=== PATIENT | female | born 1970 | race American Indian/Alaskan Native ===

== ENCOUNTER 2017-01-01 19:21 | Emergency (ER) | payer SELFPAY ==
[2017-01-01 20:07] LABS: Basophils % (Auto) 0.2 % (0.0-1.8); Eosinophils % (Auto) 0.4 % (0.0-4.3); Hematocrit 41.8 % (30.3-42.9); Hemoglobin 13.8 gm/dl (10.1-14.3); Mean Corpuscular HGB Conc 33 % (30-34); Mean Corpuscular Hemoglobin 29 pg (28-32); Mean Corpuscular Volume 89 fl (79-97); Platelet Count 412 K/mm3 (140-440); Red Blood Count 4.71 M/mm3 (3.65-5.03); White Blood Count 12.8 K/mm3 (4.5-11.0)
[2017-01-01 20:28] LABS: Alanine Aminotransferase 20 units/L (7-56); Albumin 3.7 g/dL (3.9-5); Albumin/Globulin Ratio 0.9 %; Alkaline Phosphatase 41 units/L (35-129); Anion Gap 21 mmol/L; BUN/Creatinine Ratio 4.28; Blood Urea Nitrogen 3 mg/dL (7-17); Calcium 9.2 mg/dL (8.4-10.2); Carbon Dioxide 20 mmol/L (22-30); Glucose 108 mg/dL (65-100); Sodium 143 mmol/L (137-145); Total Protein 7.9 g/dL (6.3-8.2)
[2017-01-02 00:08] LABS: Bilirubin,Urine NEG (Negative); Blood,Urine NEG (Negative); Ketones,Urine 80 mg/dL (Negative); Leukocyte Esterase,Urine TR (Negative); Mucus,Urine 3+ /HPF; Nitrite,Urine NEG (Negative); Urobilinogen,Urine < 2.0 mg/dL (<2.0)
[2017-01-02] MEDS ORDERED: ZOFRAN IV ONE (01:35)
[2017-01-02] MEDS ORDERED: NACL 0.9% 1000 ML 1,000 ML IV ONE (01:35)
[2017-01-02] MEDS ORDERED: MAG-OX PO ONE (01:36)
[2017-01-02] MEDS ORDERED: K-DUR PO ONE ×2 (01:36→04:01)
[2017-01-02] MEDS ORDERED: CARAFATE PO ONE (01:49)
[2017-01-02] MEDS ORDERED: BENTYL IM ONE (01:49)
--- NOTE | 2017-01-02 01:50 | Emergency Department Report ---
ED General Adult HPI - General Chief complaint: Abdominal Pain Stated complaint: VOMITING Time Seen by Provider: 01/02/17 01:35 Source: patient, RN notes reviewed, old records reviewed Mode of arrival: Ambulatory Limitations: No Limitations, Language Barrier - History of Present Illness Initial comments: This is a 46-year-old female, she is previously known to me. On 12/14/2016, patient had a laparoscopic appendectomy at [facility]; [facility]. Her general surgeon was Dr. Thomas. The patient presents to the ER with complaints of nausea, vomiting, diarrhea. The patient was seen in the emergency room at the aforementioned hospital 2 days ago, and had a CT scan with contrast, which demonstrated nonspecific colitis. Specifically, there are no postsurgical changes or complications from the appendectomy," colitis with diffuse wall thickening of the colon could be infectious or inflammatory." The patient was discharged with ciprofloxacin, Flagyl, and pain medication (Bentyl) . She was not discharged with nausea medication. The patient reports that she was able to tolerate liquid feeds upon discharge, but shortly thereafter, developed profuse nausea, vomiting and diarrhea. The emesis is clear, nonbloody and nonbilious. She reports that her diarrhea is clear, and occasionally dark brown. There is no hematemesis or bright red blood per rectum , and there are no irritative obstructive urinary symptoms. Her symptoms worsen when she attempts to eat. -: Gradual Consistency: intermittent Improves with: medication, rest Worsens with: eating Associated Symptoms: nausea/vomiting, weakness - Related Data Previous Rx's Medication Instructions Recorded Last Taken Type Ondansetron [Zofran Odt] 4 mg PO QID PRN #20 tab.rapdis 01/02/17 Unknown Rx Potassium Chloride [K-Tanesha] 20 meq PO BID #14 liquid 01/02/17 Unknown Rx Promethazine [Phenergan SUPPOS] 50 mg AK Q6H PRN #20 supp.rect 01/02/17 Unknown Rx Allergies Allergy/AdvReac Type Severity Reaction Status Date / Time Penicillins Allergy Unknown Verified 01/01/17 19:38 ED Review of Systems ROS: Stated complaint: VOMITING Other details as noted in HPI Constitutional: denies: fever, malaise Eyes: denies: vision change ENT: denies: epistaxis Respiratory: denies: cough Cardiovascular: denies: chest pain Gastrointestinal: nausea, vomiting, diarrhea. denies: abdominal pain Genitourinary: denies: dysuria Musculoskeletal: denies: back pain Skin: denies: lesions Neurological: weakness ED Past Medical Hx - Past Medical History Previous Medical History?: No - Surgical History Past Surgical History?: Yes Hx Appendectomy: Yes - Social History Smoking Status: Never Smoker Substance Use Type: None - Medications Home Medications: Home Medications Medication Instructions Recorded Confirmed Last Taken Type Ondansetron [Zofran Odt] 4 mg PO QID PRN #20 tab.rapdis 01/02/17 Unknown Rx Potassium Chloride [K-Tanesha] 20 meq PO BID #14 liquid 01/02/17 Unknown Rx Promethazine [Phenergan SUPPOS] 50 mg AK Q6H PRN #20 supp.rect 01/02/17 Unknown Rx ED Physical Exam - General Limitations: No Limitations General appearance: alert, in no apparent distress - Head Head exam: Present: atraumatic, normocephalic - Eye Eye exam: Present: normal appearance, EOMI. Absent: nystagmus - ENT ENT exam: Present: normal exam, normal orophraynx, mucous membranes moist, normal external ear exam - Neck Neck exam: Present: normal inspection, full ROM. Absent: tenderness, meningismus - Respiratory Respiratory exam: Present: normal lung sounds bilaterally. Absent: respiratory distress, wheezes, rales, rhonchi, stridor, chest wall tenderness, accessory muscle use, decreased breath sounds, prolonged expiratory - Cardiovascular Cardiovascular Exam: Present: regular rate, normal rhythm, normal heart sounds. Absent: bradycardia, tachycardia, irregular rhythm, systolic murmur, diastolic murmur, rubs, gallop - GI/Abdominal GI/Abdominal exam: Present: soft, normal bowel sounds, other (no redness, pus or streaking. The surgical site is healing well. There is no tenderness.). Absent: distended, tenderness, guarding, rebound, rigid, pulsatile mass - Rectal Rectal exam: Present: normal inspection, normal rectal tone, heme (-) stool, other (during rectal examination, escorted by nurse Varsha Johns) - Extremities Exam Extremities exam: Present: normal inspection, full ROM, normal capillary refill. Absent: pedal edema, joint swelling, calf tenderness - Back Exam Back exam: Present: normal inspection, full ROM. Absent: tenderness, CVA tenderness (R), CVA tenderness (L), muscle spasm, paraspinal tenderness, vertebral tenderness - Neurological Exam Neurological exam: Present: alert, oriented X3, normal gait, other (Extraocular movements intact. Tongue midline. No facial droop. Facial sensation intact to light touch in the V1, V2, V3 distribution bilaterally. 5 and 5 strength in 4 extremities.. Sensation is intact to light touch in 4 extremities.). Absent : motor sensory deficit - Psychiatric Psychiatric exam: Present: normal affect, normal mood - Skin Skin exam: Present: warm, dry, intact, normal color. Absent: rash ED Course Vital Signs 01/01/17 01/02/17 01/02/17 19:38 00:15 01:00 Temperature 98.8 F Pulse Rate 64 56 L 54 L Respiratory 20 20 20 Rate Blood Pressure 116/85 Blood Pressure 126/79 124/68 [Right] O2 Sat by Pulse 100 100 100 Oximetry 01/02/17 01/02/17 01/02/17 01:01 02:00 03:00 Temperature 99.1 F Pulse Rate 61 57 L Respiratory 18 18 Rate Blood Pressure Blood Pressure 137/77 125/69 [Right] O2 Sat by Pulse 100 100 Oximetry 01/02/17 04:00 Temperature Pulse Rate 66 Respiratory 18 Rate Blood Pressure Blood Pressure 122/78 [Right] O2 Sat by Pulse 100 Oximetry - Reevaluation(s) Reevaluation #1: 01/02/17 02:43 Differential diagnoses: Colitis, diverticulitis, dehydration, nausea, vomiting, diarrhea, electrolyte derangement Assessment and plan: 46-year-old female who has a recent CT scan confirmed colitis, currently on appropriate antibiotic therapy with a complaint of nausea , vomiting and diarrhea. She will be treated symptomatically. Her abdomen is benign. She is clinically well-appearing. if The patient can tolerate oral feeds, the patient will be discharged. Reevaluation #2: 01/02/17 02:53 Patient vomited after Zofran. Reglan has been ordered. Reevaluation #3: 01/02/17 04:21 Patient feels much improved after multiple rounds of IV enzymatic medication. She is now able to tolerate liquid feeds, and her belly remained soft on repeat examination. She will be discharged with Zofran ODT, Phenergan suppository, liquid potassium supplementation. She has not produced a stool sample since I first evaluated her, therefore I think C. difficile is unlikely. She is instructed to follow up with outpatient blade operator within the next month. Return precautions are reviewed. ED Medical Decision Making - Lab Data Result diagrams: 01/01/17 19:56 01/01/17 19:56 Vital Signs 01/01/17 01/02/17 01/02/17 19:38 00:15 01:01 Temperature 98.8 F 99.1 F Pulse Rate 64 56 L Respiratory 20 20 Rate Blood Pressure 116/85 Blood Pressure 126/79 [Right] O2 Sat by Pulse 100 100 Oximetry Lab Results 01/01/17 01/01/17 01/01/17 Range/Units 19:56 19:56 19:56 WBC 12.8 H (4.5-11.0) K/mm3 RBC 4.71 (3.65-5.03) M/mm3 Hgb 13.8 (10.1-14.3) gm/dl Hct 41.8 (30.3-42.9) % MCV 89 (79-97) fl MCH 29 (28-32) pg MCHC 33 (30-34) % RDW 14.0 (13.2-15.2) % Plt Count 412 (140-440) K/mm3 Lymph % (Auto) 24.3 (13.4-35.0) % [place] % (Auto) 10.1 H (0.0-7.3) % Eos % (Auto) 0.4 (0.0-4.3) % Baso % (Auto) 0.2 (0.0-1.8) % Lymph # 3.1 (1.2-5.4) K/mm3 [place] # 1.3 H (0.0-0.8) K/mm3 Eos # 0.0 (0.0-0.4) K/mm3 Baso # 0.0 (0.0-0.1) K/mm3 Seg Neutrophils % 65.0 (40.0-70.0) % Seg Neutrophils # 8.3 H (1.8-7.7) K/mm3 Sodium 143 (137-145) mmol/L Potassium 3.0 L (3.6-5.0) mmol/L Chloride 105.0 (98-107) mmol/L Carbon Dioxide 20 L (22-30) mmol/L Anion Gap 21 mmol/L BUN 3 L (7-17) mg/dL Creatinine 0.7 (0.7-1.2) mg/dL Estimated GFR > 60 ml/min BUN/Creatinine Ratio 4.28 % Glucose 108 H (65-100) mg/dL Calcium 9.2 (8.4-10.2) mg/dL Magnesium (1.7-2.3) mg/dL Total Bilirubin 0.40 (0.1-1.2) mg/dL AST 24 (5-40) units/L ALT 20 (7-56) units/L Alkaline Phosphatase 41 (35-129) units/L Total Protein 7.9 (6.3-8.2) g/dL Albumin 3.7 L (3.9-5) g/dL Albumin/Globulin Ratio 0.9 % HCG, Qual Negative (Negative) Urine Color (Yellow) Urine Turbidity (Clear) Urine pH (5.0-7.0) Ur Specific [place] (1.003-1.030) Urine Protein (Negative) mg/dL Urine Glucose (UA) (Negative) mg/dL Urine Ketones (Negative) mg/dL Urine Blood (Negative) Urine Nitrite (Negative) Urine Bilirubin (Negative) Urine Urobilinogen (<2.0) mg/dL Ur Leukocyte Esterase (Negative) Urine WBC (Auto) (0.0-6.0) /HPF Urine RBC (Auto) (0.0-6.0) /HPF U Epithel Cells (Auto) (0-13.0) /HPF Urine Mucus /HPF 01/01/17 01/02/17 Range/Units 22:50 01:36 WBC (4.5-11.0) K/mm3 RBC (3.65-5.03) M/mm3 Hgb (10.1-14.3) gm/dl Hct (30.3-42.9) % MCV (79-97) fl MCH (28-32) pg MCHC (30-34) % RDW (13.2-15.2) % Plt Count (140-440) K/mm3 Lymph % (Auto) (13.4-35.0) % [place] % (Auto) (0.0-7.3) % Eos % (Auto) (0.0-4.3) % Baso % (Auto) (0.0-1.8) % Lymph # (1.2-5.4) K/mm3 [place] # (0.0-0.8) K/mm3 Eos # (0.0-0.4) K/mm3 Baso # (0.0-0.1) K/mm3 Seg Neutrophils % (40.0-70.0) % Seg Neutrophils # (1.8-7.7) K/mm3 Sodium (137-145) mmol/L Potassium (3.6-5.0) mmol/L Chloride (98-107) mmol/L Carbon Dioxide (22-30) mmol/L Anion Gap mmol/L BUN (7-17) mg/dL Creatinine (0.7-1.2) mg/dL Estimated GFR ml/min BUN/Creatinine Ratio % Glucose (65-100) mg/dL Calcium (8.4-10.2) mg/dL Magnesium 2.00 (1.7-2.3) mg/dL Total Bilirubin (0.1-1.2) mg/dL AST (5-40) units/L ALT (7-56) units/L Alkaline Phosphatase (35-129) units/L Total Protein (6.3-8.2) g/dL Albumin (3.9-5) g/dL Albumin/Globulin Ratio % HCG, Qual (Negative) Urine Color [place] (Yellow) Urine Turbidity Clear (Clear) Urine pH 5.0 (5.0-7.0) Ur Specific [place] 1.026 (1.003-1.030) Urine Protein 100 mg/dl (Negative) mg/dL Urine Glucose (UA) Neg (Negative) mg/dL Urine Ketones 80 (Negative) mg/dL Urine Blood Neg (Negative) Urine Nitrite Neg (Negative) Urine Bilirubin Neg (Negative) Urine Urobilinogen < 2.0 (<2.0) mg/dL Ur Leukocyte Esterase Tr (Negative) Urine WBC (Auto) 8.0 H (0.0-6.0) /HPF Urine RBC (Auto) 3.0 (0.0-6.0) /HPF U Epithel Cells (Auto) 2.0 (0-13.0) /HPF Urine Mucus 3+ /HPF Critical care attestation.: If time is entered above; I have spent that time in minutes in the direct care of this critically ill patient, excluding procedure time. ED Disposition Clinical Impression: Nausea and vomiting, Hypokalemia Disposition: DC-01 TO HOME OR SELFCARE Is pt being admited?: No Does the pt Need Aspirin: No Condition: Stable Instructions: Ulcerative Colitis (ED) Additional Instructions: Take medications as directed. Do not consume alcohol while taking the antibiotics. Follow up with a blade operator within the next month to 6 weeks. It is very important to closely follow up for the nonspecific colitis that was diagnosed at another hospital, to exclude cancer/tumor/malignancy. Return to the ER right away with new pain, worsened pain, migration of pain, fevers, chills, confusion, inability to tolerate liquid feeds. Prescriptions: Ondansetron [Zofran Odt] 4 mg PO QID PRN #20 tab.rapdis PRN Reason: Nausea Potassium Chloride [K-Tanesha] 20 meq PO BID #14 liquid Promethazine [Phenergan SUPPOS] 50 mg AK Q6H PRN #20 supp.rect PRN Reason: Nausea Referrals: JUAN PABLO SAAVEDRA MD [Primary Care Provider] - 3-5 Days ANNA JUAREZ MD [Staff Physician] - 3-5 Days
[2017-01-02] MEDS: KCL 10MEQ/100ML 10 MEQ/100 ML BAG IV SCH ×2 (02:14→03:11)
[2017-01-02] MEDS ORDERED: REGLAN IV ONE ×2 (02:52→03:10)
[2017-01-02 04:38] VITALS: BP 122/78
== END 2017-01-02 04:30 | disposition home or self-care (01) ==
LOC: ED 19:21
DX: E87.6 Hypokalemia (principal)
CPT/HCPCS: 36415; 80053; 81001; 82271; 83735; 84703; 85025; 96361; 96365; 96366; 96375; 99284; J2405; J2765; J3480; J7030